=== PATIENT | female | born 1995 | race Two or more races ===

== ENCOUNTER 2017-11-28 15:48 | Observation (INO) | payer SELFPAY ==
[2017-11-28] MEDS: hydrOXYzine PAMOATE 25 MG CAPSULE PO ×2 (18:03)
== END 2017-11-28 21:25 | disposition home or self-care (01) ==
LOC: 3 SO LND 15:48
DX: O62.9 Abnormality of forces of labor, unspecified (principal); Z3A.36 36 weeks gestation of pregnancy
CPT/HCPCS: G0378; G0379; Q0177

== ENCOUNTER 2017-12-14 22:01 | Inpatient (IN) | payer SELFPAY ==
[2017-12-14] MEDS ORDERED: fentaNYL PF VIAL 100 MCG/2 ML VIAL IV ×2 (22:45)
[2017-12-14] MEDS ORDERED: BUTORPHANOL 2 MG/ML VIAL. IV (22:45)
[2017-12-14] MEDS ORDERED: TERBUTALINE 1 MG/ML VIAL. SQ (22:45)
[2017-12-14] MEDS ORDERED: CITRIC ACID/SODIUM CITRATE 30 ML SOLUTION. PO (22:45)
[2017-12-14] MEDS ORDERED: 0.9 % SODIUM CHLORIDE 10 ML DISP.SYRIN. IV (22:45)
[2017-12-14] MEDS ORDERED: ACETAMINOPHEN 325 MG TABLET. PO (22:45)
[2017-12-14] MEDS ORDERED: OXYTOCIN 30 UNIT/500 ML PREMIX 500 ML IV (22:45)
[2017-12-14 22:46] LABS: BILIRUBIN,URINE NEGATIVE (NEG); CLARITY,URINE CLOUDY; COLOR,URINE YELLOW; GLUCOSE,URINE NEGATIVE (NEG); NITRITE,URINE NEGATIVE (NEG); PROTEIN,URINE NEGATIVE (NEG-TRACE); UROBILINOGEN,URINE 0.2 mg/dL (0.2 mg/dL)
[2017-12-14 22:52] LABS: BACTERIA,URINE FEW /HPF (0-FEW); RBC,URINE 0 /HPF (0-2); SQUAMOUS EPITHELIAL CELL,UR FEW /LPF
[2017-12-14] MEDS ORDERED: DINOPROSTONE 10 MG SUPP.VAG VG (23:00)
[2017-12-14 23:02] LABS: ADD MAN DIFF? NO
[2017-12-14 23:05] LABS: BASO % 0 % (0-3); EOS # 0.6 x10^3/uL (0.0-0.7); EOS % 4 % (0-3); HEMATOCRIT 35.6 % (36.0-47.0); HEMOGLOBIN 12.2 g/dL (12.0-15.5); LYMPH % 13 % (24-48); MEAN CORPUSCULAR HEMOGLOBIN 29 pg (25-35); MEAN CORPUSCULAR HGB CONC 34 g/dL (31-37); MEAN CORPUSCULAR VOLUME 84 fL (79-100); MONO # 1.2 x10^3/uL (0.0-1.1); MONO % 7 % (0-9); NEUT # 11.8 x10^3uL (1.8-7.7); NEUT % 76 % (31-73); PLATELET COUNT 200 x10^3/uL (140-400); RED BLOOD COUNT 4.22 x10^6/uL (3.50-5.40); RED CELL DISTRIBUTION WIDTH 14.2 % (11.5-14.5); WHITE BLOOD COUNT 15.5 x10^3/uL (4.0-11.0)
[2017-12-14] MEDS ORDERED: OXYTOCIN PREMIX 30 UNIT/500 ML BAG. IV (23:45)
[2017-12-14] MEDS: BUTORPHANOL 2 MG/ML VIAL. IV (23:48)
[2017-12-14] MEDS: IV RINGERS,LACTATED 1000ML 1,000 ML IV (23:49)
[2017-12-14] MEDS: ONDANSETRON PF 4 MG/2 ML VIAL. IV (23:50)
[2017-12-15] MEDS: BUTORPHANOL 2 MG/ML VIAL. IV (02:48)
[2017-12-15] MEDS: IV RINGERS,LACTATED 1000ML 1,000 ML IV ×7 (02:48→22:45)
[2017-12-15] MEDS ORDERED: ceFAZolin 2GM PREMIX 2 GM/50 ML BAG IV (07:00)
[2017-12-15] MEDS: LIDOCAINE 1% PF 30 ML VIAL. INJ (07:21)
[2017-12-15] MEDS: OXYTOCIN 30 UNIT/500 ML PREMIX 500 ML IV (07:22)
[2017-12-15] MEDS ORDERED: LIDOCAINE 2% PF Vial for OR 5 ML VIAL. ×4 (09:55→14:41)
[2017-12-15] MEDS ORDERED: L&D EPIDURAL SYRINGE 0 ML EP (10:27)
[2017-12-15] MEDS ORDERED: L&D EPIDURAL SYRINGE 50 ML EP ×2 (10:51→11:15)
[2017-12-15] MEDS ORDERED: ROPIVacaine 0.2% PF 10 ML VIAL. (10:51)
[2017-12-15] MEDS ORDERED: L&D EPIDURAL 50 ML SYRINGE. EP (11:00)
[2017-12-15] MEDS ORDERED: NALOXONE 0.4 MG/ML VIAL. IV (11:15)
[2017-12-15] MEDS ORDERED: ONDANSETRON PF 4 MG/2 ML VIAL. IV ×2 (11:15→15:00)
[2017-12-15] MEDS ORDERED: ePHEDrine PF IN SALINE 50 MG/5 ML DISP.SYRIN IV (11:15)
[2017-12-15] MEDS: fentaNYL PF VIAL 100 MCG/2 ML VIAL EPI (11:15)
[2017-12-15] MEDS: ROPIVacaine 0.2% PF 10 ML VIAL. EPI (11:46)
[2017-12-15] MEDS ORDERED: ONDANSETRON PF 4 MG/2 ML VIAL. (13:07)
[2017-12-15] MEDS ORDERED: FAMOTIDINE 20 MG/2 ML VIAL (13:07)
[2017-12-15] MEDS ORDERED: OXYTOCIN 10 UNIT/ML VIAL. (13:10)
[2017-12-15] MEDS ORDERED: fentaNYL PF VIAL 100 MCG/2 ML VIAL (14:01)
[2017-12-15] MEDS ORDERED: MORPHINE PF 5 MG/10 ML VIAL. (14:10)
[2017-12-15] MEDS ORDERED: PROPOFOL 20 ML IV (14:30)
[2017-12-15] MEDS ORDERED: MAG HYDROX/ALUMINUM HYD/SIMETH 30 ML ORAL.SUSP PO (15:00)
[2017-12-15] MEDS ORDERED: ZOLPIDEM 5 MG TABLET. PO (15:00)
[2017-12-15] MEDS ORDERED: 0.9 % SODIUM CHLORIDE 10 ML DISP.SYRIN. IV (15:00)
[2017-12-15] MEDS ORDERED: MMR per PROTOCOL. MC (15:00)
[2017-12-15] MEDS ORDERED: OXYTOCIN 30 UNIT/500 ML PREMIX 500 ML IV (15:00)
[2017-12-15] MEDS ORDERED: SIMETHICONE 80 MG TAB.CHEW PO (15:00)
[2017-12-15] MEDS ORDERED: diphenhydrAMINE ORAL ELIXIR 12.5 MG/5 ML ML PO (15:00)
[2017-12-15] MEDS: FERROUS SULFATE 325 MG TABLET. PO (17:00)
[2017-12-15] MEDS: KETOROLAC 30 MG/ML INJ. IV (17:21)
[2017-12-15] MEDS ORDERED: ceFAZolin SODIUM 1 GM in IV DEXTROSE 5% 50 ML IV (22:00)
[2017-12-15] MEDS: DOCUSATE SODIUM 100 MG CAPSULE. PO (22:44)
[2017-12-15] MEDS: IBUPROFEN 800 MG TABLET. PO (22:44)
[2017-12-15] MEDS: ceFAZolin SODIUM IV Push 1 GM VIAL. IVP (22:45)
[2017-12-15 23:10] LABS: HIV ANTIBODY Non Reactive (Non Reactive)
[2017-12-16] MEDS: IV RINGERS,LACTATED 1000ML 1,000 ML IV ×2 (01:29→06:15)
[2017-12-16] MEDS: ceFAZolin SODIUM IV Push 1 GM VIAL. IVP ×2 (05:38→14:38)
[2017-12-16] MEDS: IBUPROFEN 800 MG TABLET. PO ×2 (05:38→19:28)
[2017-12-16 05:49] LABS: ADD MAN DIFF? NO
[2017-12-16 05:53] LABS: BASO % 0 % (0-3); EOS # 0.5 x10^3/uL (0.0-0.7); EOS % 5 % (0-3); HEMATOCRIT 27.3 % (36.0-47.0); HEMOGLOBIN 9.4 g/dL (12.0-15.5); LYMPH # 1.4 x10^3/uL (1.0-4.8); LYMPH % 14 % (24-48); MEAN CORPUSCULAR HEMOGLOBIN 29 pg (25-35); MEAN CORPUSCULAR HGB CONC 34 g/dL (31-37); MEAN CORPUSCULAR VOLUME 84 fL (79-100); MONO # 0.9 x10^3/uL (0.0-1.1); MONO % 8 % (0-9); NEUT # 7.5 x10^3uL (1.8-7.7); NEUT % 73 % (31-73); PLATELET COUNT 140 x10^3/uL (140-400); RED BLOOD COUNT 3.25 x10^6/uL (3.50-5.40); RED CELL DISTRIBUTION WIDTH 14.2 % (11.5-14.5); WHITE BLOOD COUNT 10.3 x10^3/uL (4.0-11.0)
[2017-12-16] MEDS: FERROUS SULFATE 325 MG TABLET. PO ×2 (08:03→19:29)
[2017-12-16] MEDS: DOCUSATE SODIUM 100 MG CAPSULE. PO ×2 (08:03→19:28)
[2017-12-16] MEDS: oxyCODONE/APAP 5/325 1 TAB TABLET PO ×4 (08:04→23:55)
[2017-12-16 08:26] LABS: RPR Non Reactive (Non Reactive)
[2017-12-17] MEDS: oxyCODONE/APAP 5/325 1 TAB TABLET PO ×2 (04:05→08:18)
[2017-12-17] MEDS: IBUPROFEN 800 MG TABLET. PO ×4 (04:10→22:05)
[2017-12-17] MEDS: DOCUSATE SODIUM 100 MG CAPSULE. PO ×2 (08:18→22:05)
[2017-12-17] MEDS: FERROUS SULFATE 325 MG TABLET. PO ×2 (08:18→17:00)
[2017-12-18] MEDS: oxyCODONE/APAP 5/325 1 TAB TABLET PO ×2 (05:03→20:27)
[2017-12-18] MEDS: IBUPROFEN 800 MG TABLET. PO ×3 (06:00→18:14)
[2017-12-18] MEDS: DOCUSATE SODIUM 100 MG CAPSULE. PO (09:23)
[2017-12-18] MEDS: MAGNESIUM HYDROXIDE 2,400 MG/30 ML ORAL.SUSP. PO (09:23)
[2017-12-18] MEDS: FERROUS SULFATE 325 MG TABLET. PO ×2 (09:23→18:14)
[2017-12-18] MEDS ORDERED: BISACODYL 10 MG SUPP.RECT. PR (17:15)
[2017-12-19] MEDS: IBUPROFEN 800 MG TABLET. PO (06:02)
[2017-12-19] MEDS: oxyCODONE/APAP 5/325 1 TAB TABLET PO (06:03)
[2017-12-19] MEDS: FERROUS SULFATE 325 MG TABLET. PO (09:04)
[2017-12-19] MEDS: DOCUSATE SODIUM 100 MG CAPSULE. PO (09:04)
== END 2017-12-19 16:15 | disposition home or self-care (01) | DRG 766 ==
LOC: 3 SO LND 22:01
PROC: 10D00Z1 Extraction of Products of Conception, Low, Open Approach (ICD-10-PCS; principal; 2017-12-14)
PROC: 0UB70ZZ Excision of Bilateral Fallopian Tubes, Open Approach (ICD-10-PCS; 2017-12-14)
DX: O62.1 Secondary uterine inertia (principal); O66.5 Attempted application of vacuum extractor and forceps; Z37.0 Single live birth; Z30.2 Encounter for sterilization; Z3A.40 40 weeks gestation of pregnancy
CPT/HCPCS: 36415; 81001; 85025; 86593; 86703; 86850; 86900; 86901; 87086; 88302; G0379; J0690; J1885; J2270; J2405; J2590; J2704; J2795; J3010; J7120; S0028